=== PATIENT | female | born 1965 | race Caucasian/White ===

== ENCOUNTER 2019-06-29 08:17 | Outpatient (CLI) | payer OTHER, SELFPAY ==
--- NOTE | ~2019-06-29 | XR_ITS ---
EXAMINATION: XR ankle RT min 3V, XR foot RT min 3V DATE: 06/29/2019 09:08 INDICATION: Arthritis presenting with posterior ankle and calcaneal pain. TECHNIQUE: 1. Anteroposterior, mortise, additional oblique and lateral view of the right ankle were obtained. 2. Dorsoplantar, two oblique and lateral views of the right foot were obtained. COMPARISON: None. FINDINGS: Alignment of the right foot and ankle is normal. No fracture. Large peripherally corticated ossicle m easuring approximately 2.5 x 1.9 x 1.9 cm located at the posterior recess of the ankle joint. Differe ntial would include large loose osteochondral body, os trigonum or potentially an osteochondroma lorenzo ing from the superior margin of the calcaneus which also demonstrates an irregular cortical contour. The subtalar joint is not clearly profiled posteriorly raising possibility of a talocalcaneal coaliti on. Mild osteoarthritis at the ankle, calcaneocuboid, first metatarsophalangeal and a few tarsal meta tarsal and interphalangeal joints. Moderate Achilles and plantar calcaneal spurs. Soft tissues are un remarkable with no evident ankle joint effusion. IMPRESSION: 1. 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 2. Large ossification posterior to the ankle joint with differential including large degenerative loo se osteochondral body, os trigonum or potentially an osteochondroma. Could consider CT for more defin itive determination. Reviewed, dictated and finalized at location A. 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 2. Large ossification posterior to the ankle joint with differential including large degenerative loose osteochondral body, os trigonum or potentially an oste ochondroma. Could consider CT for more definitive determination.
--- NOTE | ~2019-06-29 | XR_ITS ---
EXAMINATION: XR hip LT min 2V INDICATION: Left hip pain TECHNIQUE: Two views of the left hip are obtained. COMPARISON: None available FINDINGS: Bone alignment is normal. There is mild osteoarthritis. No fracture is identified. There ar e phleboliths of the pelvis. IMPRESSION: 1. No acute osseous abnormality. Reviewed, dictated and finalized at location A. 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
[2019-06-29 09:11] LABS: Alanine Aminotransferase 42 U/L (14-59); Albumin Level 3.6 g/dL (3.4-5.0); Alkaline Phosphatase 43 U/L (46-116); Anion Gap 13.1 mmol/L (7-16); Aspartate Amino Transferase 27 U/L (15-37); Bilirubin,Total 0.7 mg/dL (0.00-1.00); Blood Urea Nitrogen 17 mg/dL (7-18); Calcium 8.9 mg/dL (8.5-10.1); Carbon Dioxide 28 mmol/L (21-32); Chloride 104 mmol/L (98-108); Estimated Glomerular Filt Rate > 60; Glucose 100 mg/dL (70-99); Osmolality Calculated 293 mOsm/kg (285-295); Potassium 4.1 mmol/L (3.5-5.1); Sodium 141 mmol/L (136-145); Total Protein 7.1 g/dL (6.4-8.2); Uric Acid 5.9 mg/dL (2.6-6.0)
[2019-06-29 09:19] LABS: CRP < 0.2 mg/dL (0.0-0.9)
== END 2019-06-29 08:18 | disposition home or self-care (01) ==
PROVIDERS: PCP Internal Medicine; Visit Provider Internal Medicine
DX: M25.50 Pain in unspecified joint (principal); I10 Essential (primary) hypertension
CPT/HCPCS: 36415; 73502; 73610; 73630; 80053; 84550; 86140

== ENCOUNTER 2020-03-08 09:10 | Outpatient (CLI) | payer OTHER, SELFPAY ==
[2020-03-08 10:04] LABS: Alanine Aminotransferase 46 U/L (14-59); Albumin Level 3.7 g/dL (3.4-5.0); Alkaline Phosphatase 49 U/L (46-116); Anion Gap 9 mmol/L (8-16); Aspartate Amino Transferase 23 U/L (15-37); Bilirubin,Total 0.6 mg/dL (0.00-1.00); Blood Urea Nitrogen 20 mg/dL (7-18); Carbon Dioxide 27 mmol/L (21-32); Chloride 104 mmol/L (98-108); Estimated Glomerular Filt Rate > 60; Glucose 98 mg/dL (70-99); Osmolality Calculated 292 mOsm/kg (285-295); Potassium 4.5 mmol/L (3.5-5.1); Sodium 140 mmol/L (136-145); Total Protein 6.8 g/dL (6.4-8.2)
== END 2020-03-08 09:11 | disposition home or self-care (01) ==
LOC: CHSLAB 09:12
PROVIDERS: PCP Internal Medicine; Visit Provider Internal Medicine
DX: I10 Essential (primary) hypertension (principal)
CPT/HCPCS: 36415; 80053

== ENCOUNTER 2020-09-11 08:51 | Outpatient (CLI) | payer OTHER, SELFPAY ==
[2020-09-11 09:06] LABS: Basophils Absolute Auto 0.04 K/mm3 (0.00-0.10); Basophils Percent Auto 0.7 % (0.0-1.0); Eosinophils Absolute Auto 0.28 K/mm3 (0.02-0.50); Eosinophils Percent Auto 5.1 % (1.0-6.0); Hematocrit 46.8 % (35.0-49.0); Hemoglobin 15.2 g/dL (12.0-15.0); Immature Granulocyte Absolute 0.01 K/mm3 (0.00-0.00); Immature Granulocyte Percent A 0.2 % (0.0-0.0); Lymphocytes Percent Auto 32.7 % (18.0-42.0); Mean Corpuscular HGB Conc 32.5 g/dL (32.0-36.0); Mean Corpuscular Hemoglobin 29.3 pg (27.0-31.0); Mean Corpuscular Volume 90.3 fL (78.0-102.0); Monocytes Absolute Auto 0.39 K/mm3 (0.10-0.90); Monocytes Percent Auto 7.1 % (2.0-11.0); Neutrophils Percent Auto 54.2 % (50.0-70.0); Platelet Count Result 231 K/mm3 (150-420); Red Blood Count 5.18 M/mm3 (4.20-5.40); Red Cell Distribution Width 13.4 % (11.6-14.4); White Blood Count 5.5 K/mm3 (4.8-10.8)
[2020-09-11 09:23] LABS: Add Urine Microscopic? NO; Appearance Urine Clear (Clear); Bilirubin Urine Negative (Negative); Blood Urine Negative (Negative); Color Urine Yellow (Yellow); Glucose Urine UA Negative (Negative); Ketones Urine Negative (Negative); Leukocyte Esterase Ur Negative LEU/UL (Negative); Nitrate Urine Negative (Negative); Protein Urine Negative (Negative); Urobilinogen Urine 0.2 mg/dL (0.2-1.0); pH Urine 6.5 (5.0-8.0)
[2020-09-11 10:34] LABS: Alanine Aminotransferase 53 U/L (14-59); Albumin Level 3.7 g/dL (3.4-5.0); Alkaline Phosphatase 55 U/L (46-116); Anion Gap 8 mmol/L (8-16); Aspartate Amino Transferase 17 U/L (15-37); Bilirubin,Total 0.5 mg/dL (0.00-1.00); Blood Urea Nitrogen 20 mg/dL (7-18); Calcium 9.5 mg/dL (8.5-10.1); Carbon Dioxide 31 mmol/L (21-32); Chloride 102 mmol/L (98-108); Cholesterol 178 mg/dL (0-200); Estimated Glomerular Filt Rate > 60; Glucose 96 mg/dL (70-99); HDL Direct 57 mg/dL (40-60); LDL Cholesterol Calculated 102 mg/dL (<130); Osmolality Calculated 294 mOsm/kg (285-295); Potassium 4.6 mmol/L (3.5-5.1); Sodium 141 mmol/L (136-145); Thyroid Stimulating Hormone 1.35 uIU/mL (0.36-3.74); Total Protein 7.2 g/dL (6.4-8.2); Triglycerides 95 mg/dL (0-150)
== END 2020-09-11 08:52 | disposition home or self-care (01) ==
LOC: CHSLAB 08:54
PROVIDERS: PCP Internal Medicine; Visit Provider Internal Medicine
DX: E66.9 Obesity, unspecified (principal); I10 Essential (primary) hypertension
CPT/HCPCS: 36415; 80053; 80061; 81003; 84443; 85025

== ENCOUNTER 2020-09-26 12:03 | Outpatient (CLI) | payer OTHER, SELFPAY ==
[2020-09-26 14:37] LABS: SARS-CoV-2 RNA PCR Positive (Negative)
== END 2020-09-26 12:04 | disposition home or self-care (01) ==
LOC: CHSLAB 12:05
PROVIDERS: PCP Internal Medicine; Visit Provider Internal Medicine
DX: U07.1 COVID-19 (principal)
CPT/HCPCS: C9803; U0003; U0005

== ENCOUNTER 2021-02-27 00:23 | Day surgery (SDC) | payer OTHER, SELFPAY ==
[2021-02-13 10:14] VITALS: BMI 51.6
[2021-02-27 07:18] VITALS: BP 160/98; PULSE 66; RESP 18; TEMP 36.5; O2SAT 100; BMI 54.6
--- NOTE | 2021-02-27 07:39 | WPDANESEPPF ---
Anes - Initial Pre Proc Eval Procedure: Operation Date: 02/27/21 08:30 Proposed Procedures p Screening Colonoscopy - Kieran Milligan MD Date/Time: 02/27/21 07:39 Surgeon: Kieran Milligan MD Pre Op Diagnosis: neoplasm screening Patient Data Age: 55 Gender: F Height: 1.63 m Weight: 144.3 kg Last Vital Signs Temp 36.5 C 02/27/21 07:18 Pulse 66 02/27/21 07:18 Resp 18 02/27/21 07:18 BP 160/98 H 02/27/21 07:18 Pulse Ox 100 02/27/21 07:18 Allergies Allergy/AdvReac Type Severity Reaction Status Date / Time No Known Allergies Allergy Verified 02/27/21 07:18 Home Medications Medication Instructions Recorded Confirmed Type glucosamine HCl 1,500 mg tablet 1,500 mg PO DAILY 07/16/19 02/13/21 History lisinopril 20 1 tablet PO DAILY 07/16/19 02/13/21 History mg-hydrochlorothiazide 12.5 mg tablet naproxen sodium 220 mg tablet 220 mg PO BID PRN 07/16/19 02/13/21 History vitamin B complex [B 1 tablet PO DAILY 02/13/21 02/13/21 History Complex-Vitamin B12] Patient hx anesthesia problems: none Family hx anesthesia problems: none Results Review: All pre-operative results and documents have been reviewed as part of the pre-operative evaluation. [facility] Past Medical History Medical History (Updated 02/27/21 @ 07:40 by Medardo Garcia MD) Arthritis of left subtalar joint Morbid obesity with BMI of 50.0-59.9, adult Surgical History Surgical History (Updated 07/16/19 @ 14:57 by Tanja Vo MA) History of carpal tunnel release Family History Family History Father Diabetes mellitus Hypertension Sibling Diabetes mellitus Hypertension Family history of malignant neoplasm Mother Family history of congestive heart failure Other Family history of allergic disorder Family history of hypothyroidism Family history of type 2 diabetes mellitus Social History Social History Smoking status: Never smoker Alcohol intake: current Alcohol use details: rare alcohol use Substance use: never Substance use type: does not use Living arrangements: with family Additional living arrangements comments: lives with spouse Spiritual care concerns: No Anes - Eval Final PreProcedure Day of Procedure 02/27/21 07:39 Patient weight: super morbidly obese Heart: regular rate and rhythm Lungs: clear to auscultation and normal air movement Airway: Mallampati scale class II Neurological: alert and oriented Last oral intake: >/= 8 hours ASA classification: III Emergent: no Anesthetic plan: proceed Anesthesia type and monitoring: general GIVS Results Review: All pre-operative results and documents have been reviewed as part of the pre-operative evaluation. Informed Consent: The patient's anesthetic plan and its attendant risks and benefits were discussed with the patient/family/POA. Questions were solicited and answers provided to the satisfaction of the patient/family/POA.
[2021-02-27] MEDS: LACTATED RINGERS 1,000 ML 150 ML IV CONT (07:50)
--- NOTE | 2021-02-27 08:24 | PM.HPGS ---
History of Present Illness History of Present Illness Consent: Risks, benefits, and alternatives have been discussed and questions answered. Patient agrees to proceed with procedure. Chief complaint: neoplasm screening Narrative: Avery Orellana is a 55 year old female here for first screening colonoscopy Review of Systems Constitutional: Constitutional: Denies headache(s) and Denies weakness Eyes: Eyes: Denies blurry vision ENT: Reports Normal hearing present, Denies headache(s) and Denies neck pain Cardiovascular: Cardiovascular: Denies chest pain and Denies dyspnea Respiratory: Respiratory: Denies dyspnea Gastrointestinal: Gastrointestinal: Reports no additional gastrointestinal complaints Genitourinary: Genitourinary: Denies dysuria Musculoskeletal: Musculoskeletal: Denies neck pain Integumentary/Breasts: Skin/Breast: Denies dry skin Neurologic: Reports Normal hearing present, Denies headache(s) and Denies weakness Psychiatric: Psychiatric: Denies anxiety Endocrine: Endocrine: Denies change in body appearance Hematologic/Lymphatic: Hematologic/Lymphatic: Denies easy bleeding Allergic/Immunologic: Allergic/Immunologic: Denies urticaria PMFSH Past Medical History Medical History (Updated 02/27/21 @ 08:24 by Kieran Milligan MD) Arthritis of left subtalar joint Colon cancer screening Morbid obesity with BMI of 50.0-59.9, adult Surgical History Surgical History (Updated 07/16/19 @ 14:57 by Tanja Vo MA) History of carpal tunnel release Family History Family History Father Diabetes mellitus Hypertension Sibling Diabetes mellitus Hypertension Family history of malignant neoplasm Mother Family history of congestive heart failure Other Family history of allergic disorder Family history of hypothyroidism Family history of type 2 diabetes mellitus Social History Social History Smoking status: Never smoker Alcohol intake: current Alcohol use details: rare alcohol use Substance use: never Substance use type: does not use Living arrangements: with family Additional living arrangements comments: lives with spouse Spiritual care concerns: No Meds Home Medications and Allergies Home Medications Medication Instructions Recorded Confirmed Type glucosamine HCl 1,500 mg tablet 1,500 mg PO DAILY 07/16/19 02/13/21 History lisinopril 20 1 tablet PO DAILY 07/16/19 02/13/21 History mg-hydrochlorothiazide 12.5 mg tablet naproxen sodium 220 mg tablet 220 mg PO BID PRN 07/16/19 02/13/21 History vitamin B complex [B 1 tablet PO DAILY 02/13/21 02/13/21 History Complex-Vitamin B12] Allergies Allergy/AdvReac Type Severity Reaction Status Date / Time No Known Allergies Allergy Verified 02/27/21 07:18 Vital Signs Vital Signs - 24 hr 02/27/21 07:18 Temperature 97.7 F Pulse Rate 66 Respiratory Rate 18 Blood Pressure 160/98 H Pulse Oximetry 100 Exam Const: General: comfortable and no acute distress HENMT: General nose exam: Normal nares present Eyes: General: appearance normal, both eyes and all related structures Neck: Neck: no JVD Resp: Auscultation: clear to auscultation bilaterally Cardio: Rate: regular rate Rhythm: regular rhythm GI: Inspection: non-distended GI Palp: Yes Soft to palpation Skin: General skin exam: normal color Neuro: General: gait normal Speech: normal speech Extrem: General: normal to inspection Psych: Mental Status: mental status grossly normal Assessment and Plan Assessment and plan (1) Colon cancer screening: Code(s): Z12.11 - Encounter for screening for malignant neoplasm of colon Status: Acute Assessment and Plan: colonoscopy
[2021-02-27 08:49] VITALS: BP 89/41; PULSE 62; RESP 24; O2SAT 100
[2021-02-27 08:59] VITALS: BP 114/54; PULSE 64; RESP 17; O2SAT 100
[2021-02-27 09:09] VITALS: BP 105/63; PULSE 62; RESP 21; O2SAT 100
== END 2021-02-27 09:23 | disposition home or self-care (01) ==
PROVIDERS: PCP Internal Medicine; Visit Provider Internal Medicine Gastroenterology
PROC: 0DJD8ZZ Inspection of Lower Intestinal Tract, Via Natural or Artificial Opening Endoscopic (ICD-10-PCS; CPT 45378; principal; 2021-02-27 08:30)
DX: Z12.11 Encounter for screening for malignant neoplasm of colon (principal); K57.30 Diverticulosis of large intestine without perforation or abscess without bleeding; K64.8 Other hemorrhoids; E66.01 Morbid (severe) obesity due to excess calories; Z68.43 Body mass index [BMI] 50.0-59.9, adult
CPT/HCPCS: 45378; J2704; J7120

== ENCOUNTER 2021-07-03 09:00 | Outpatient (CLI) | payer OTHER, SELFPAY ==
[2021-07-03 10:24] LABS: Alanine Aminotransferase 75 U/L (14-59); Albumin Level 3.7 g/dL (3.4-5.0); Alkaline Phosphatase 49 U/L (46-116); Anion Gap 6 mmol/L (8-16); Aspartate Amino Transferase 30 U/L (15-37); Bilirubin,Total 0.5 mg/dL (0.00-1.00); Blood Urea Nitrogen 18 mg/dL (7-18); Calcium 9.4 mg/dL (8.5-10.1); Carbon Dioxide 32 mmol/L (21-32); Chloride 104 mmol/L (98-108); Estimated Glomerular Filt Rate > 60; Glucose 94 mg/dL (70-99); Osmolality Calculated 295 mOsm/kg (285-295); Potassium 4.5 mmol/L (3.5-5.1); Sodium 142 mmol/L (136-145); Total Protein 6.9 g/dL (6.4-8.2)
== END 2021-07-03 09:01 | disposition home or self-care (01) ==
LOC: CHSLAB 09:04
PROVIDERS: PCP Internal Medicine; Visit Provider Internal Medicine
DX: I10 Essential (primary) hypertension (principal)
CPT/HCPCS: 36415; 80053

== ENCOUNTER 2022-01-03 07:36 | Outpatient (CLI) | payer OTHER, SELFPAY ==
[2022-01-03 07:52] LABS: Basophils Absolute Auto 0.05 K/mm3 (0.00-0.10); Basophils Percent Auto 0.8 % (0.0-1.0); Eosinophils Absolute Auto 0.27 K/mm3 (0.02-0.50); Eosinophils Percent Auto 4.1 % (1.0-6.0); Hematocrit 43.7 % (35.0-49.0); Hemoglobin 14.5 g/dL (12.0-15.0); Immature Granulocyte Absolute 0.02 K/mm3 (0.00-0.00); Immature Granulocyte Percent A 0.3 % (0.0-0.0); Lymphocytes Absolute Auto 1.99 K/mm3 (1.10-4.50); Lymphocytes Percent Auto 29.9 % (18.0-42.0); Mean Corpuscular HGB Conc 33.2 g/dL (32.0-36.0); Mean Corpuscular Hemoglobin 29.9 pg (27.0-31.0); Mean Corpuscular Volume 90.1 fL (78.0-102.0); Mean Platelet Volume 9.8 fl (9.2-11.8); Monocytes Absolute Auto 0.46 K/mm3 (0.10-0.90); Monocytes Percent Auto 6.9 % (2.0-11.0); Neutrophils Absolute Auto 3.9 K/mm3 (1.7-7.2); Platelet Count Result 232 K/mm3 (150-420); Red Blood Count 4.85 M/mm3 (4.20-5.40); Red Cell Distribution Width 14.5 % (11.6-14.4); White Blood Count 6.7 K/mm3 (4.8-10.8)
[2022-01-03 07:55] LABS: Add Urine Microscopic? NO; Appearance Urine Clear (Clear); Bilirubin Urine Negative (Negative); Blood Urine Negative (Negative); Color Urine Light Yellow (Yellow); Glucose Urine UA Negative (Negative); Ketones Urine Negative (Negative); Leukocyte Esterase Ur Negative (Negative); Nitrate Urine Negative (Negative); Protein Urine Negative (Negative); Specific Grav Ur 1.015 (1.010-1.020); Urobilinogen Urine 0.2 mg/dL (0.2-1.0)
[2022-01-03 08:16] LABS: Alanine Aminotransferase 38 U/L (14-59); Albumin Level 3.6 g/dL (3.4-5.0); Alkaline Phosphatase 59 U/L (46-116); Anion Gap 6 mmol/L (8-16); Aspartate Amino Transferase 20 U/L (15-37); Bilirubin,Total 0.7 mg/dL (0.00-1.00); Blood Urea Nitrogen 19 mg/dL (7-18); Calcium 9.3 mg/dL (8.5-10.1); Carbon Dioxide 29 mmol/L (21-32); Chloride 103 mmol/L (98-108); Cholesterol 162 mg/dL (0-200); Estimated Glomerular Filt Rate > 60; Glucose 106 mg/dL (70-99); HDL Direct 57 mg/dL (40-60); LDL Cholesterol Calculated 86 mg/dL (<130); Osmolality Calculated 288 mOsm/kg (285-295); Potassium 4.1 mmol/L (3.5-5.1); Sodium 138 mmol/L (136-145); Thyroid Stimulating Hormone 1.79 uIU/mL (0.36-3.74); Total Protein 7.2 g/dL (6.4-8.2); Triglycerides 93 mg/dL (0-150)
== END 2022-01-03 07:37 | disposition home or self-care (01) ==
LOC: CHSLAB 07:39
PROVIDERS: PCP Internal Medicine; Visit Provider Internal Medicine
DX: Z00.00 Encounter for general adult medical examination without abnormal findings (principal); I10 Essential (primary) hypertension; E78.5 Hyperlipidemia, unspecified
CPT/HCPCS: 36415; 80053; 80061; 81003; 84443; 85025

== ENCOUNTER 2023-02-26 13:33 | Outpatient (CLI) | payer OTHER, SELFPAY ==
--- NOTE | ~2023-02-26 | US_ITS ---
EXAMINATION: US pelvic complete w TV DATE: 02/26/2023 14:20 INDICATION: Abnormal pelvic exam, irregular menstrual cycle TECHNIQUE: Multiple transabdominal and endovaginal sonographic images of the pelvis were obtained. COMPARISON: None. FINDINGS: Uterus: 8.4 x 4.7 x 3.7 cm. Poor visualization. Endometrial complex not well visualized. 2.0 cm hypoe choic area in the parenchyma of the uterine body. Right Ovary: Not visualized. Left Ovary: Not visualized. There is no free fluid in the pelvis. IMPRESSION: Severely limited examination. Possible 2.0 cm uterine fibroid. Endometrial complex and bilateral ovar ies not visualized. Reviewed, dictated and finalized at location K. IMPRESSION: Severely limited examination. Possible 2.0 cm uterine fibroid. Endometrial comp jolly and bilateral ovaries not visualized.
--- NOTE | ~2023-02-26 | DEXA_ITS ---
Bone Density Report Name: GABRIELLA CRAIG Age: 57 Sex: Female Ethnicity: White Date of : 1965 Indication: postmenopausal; screening for osteoporosis; height loss; Referring Provider: Emily, Angelita Kamara Study: Bone densitometry was performed. Exam Date: February 26, 2023 Accession number: [id number] Bone Density: Region BMD T-score Z-score Classification AP Spine(L1, L2, L4) 1.172 1.3 2.6 Normal Femoral Neck (Left) 1.023 1.6 2.8 Normal Total Hip (Left) 1.150 1.7 2.6 Normal Femoral Neck (Right) 0.892 0.4 1.6 Normal Total Hip (Right) 1.185 2.0 2.9 Normal Femoral Neck Mean 0.958 1.0 2.2 Normal Total Hip Mean 1.168 1.9 2.7 Normal World Health Organization criteria for BMD impression classify patients as: Normal (T-score at or above -1.0), Osteopenia (T-score between -1.0 and -2.5), or Osteoporosis (T-score at or below -2.5). 10-year Fracture Risk: FRAX not reported because: All T-scores for Spine Total, Hip Total, Femoral Neck at or above -1.0 Clinical Information Provided by Patient: Has used the following medications: Vitamin D, Calcium Patient maximum height was 64 Menopause Age: 55 No regular weight bearing exercise Drinks caffeinated beverages Onset of menses at age 9 Number of children 3 Impression: The patient has normal bone mass. Discussion: BONE DENSITY IS ABOVE THE MINIMUM DESIRABLE LEVEL AT ALL SKELETAL SITES TESTED. This patient?s bone mineral density is above the minimum desirable level (T-score -1.0 or better) at all sites measured. The patient should follow a healthful lifestyle (good nutrition with adequate calcium and vitamin D, and appropriate weight-bearing exercise). Follow-Up: Consider repeating this study in 5 years or sooner if there is some new clinical indication. Reported by: Dr. Guanako Lynch on 02/26/2023 1:57:00 PM. Reviewed, dictated and finalized at location A.
== END 2023-02-26 13:34 | disposition home or self-care (01) ==
LOC: CHSIMG 13:34
PROVIDERS: PCP Internal Medicine; Visit Provider Nurse Practitioner Family
DX: Z78.0 Asymptomatic menopausal state (principal); N92.6 Irregular menstruation, unspecified
CPT/HCPCS: 76830; 76856; 77080

== ENCOUNTER 2023-03-19 10:58 | Outpatient (CLI) | payer OTHER, SELFPAY ==
[2023-03-19 12:03] LABS: Hematocrit 43.8 % (37.0-47.0); Hemoglobin 14.4 g/dL (12.0-15.0)
[2023-03-19 12:12] LABS: Anion Gap 10 mmol/L (8-16); Blood Urea Nitrogen 21 mg/dL (7-17); Calcium 9.8 mg/dL (8.4-10.2); Carbon Dioxide 29 mmol/L (22-30); Chloride 101 mmol/L (98-107); Estimated Glomerular Filt Rate > 60; Glucose 113 mg/dL (65-110); Sodium 140 mmol/L (137-145)
== END 2023-03-19 10:59 | disposition home or self-care (01) ==
LOC: ANHSURGERY 11:03
PROVIDERS: Anesthesiology; PCP Internal Medicine; Visit Provider Obstetrics & Gynecology
DX: Z01.818 Encounter for other preprocedural examination (principal); Z79.899 Other long term (current) drug therapy; N92.6 Irregular menstruation, unspecified
CPT/HCPCS: 36415; 80048; 85014; 85018

== ENCOUNTER 2023-03-21 00:53 | Day surgery (SDC) | payer OTHER, SELFPAY ==
[2023-03-14 14:43] VITALS: BMI 59.8
--- NOTE | 2023-03-14 14:46 | SUR.PREOP ---
Report to the Outpatient Waiting Room, entrance under the green pavilion located off [facility], at time 1200 on date 03/21/23. Planned Procedure Time: 1400. Time changes happen often and if your time is changed the preop area will call you the afternoon before. - You and your visitor will be asked to self-screen and do not enter if you have any COVID symptoms. - A mask is optional within the hospital at this time. Patients may have clear liquids (water, carbonated beverages, clear teas, apple juice) until 3 hours prior to surgery with a maximum of 20 ounces. - No food from midnight until time of surgery before 11am - Infants may have breast milk until 4 hours before surgery, infant formula 6 hours prior to surgery. - Children will be allowed to drink immediately following surgery. If applicable, please bring a bottle or sippy cup to assist with drinking. Juice, water, soda, and popsicles are readily available. For infants on formula, please bring formula the day of surgery. Pacifiers are allowed. Take the following medications with a SIP of water the morning of surgery: ___no morning meds DO NOT STOP ANY OF YOUR OTHER PRESCRIPTION MEDICATIONS PRIOR TO SURGERY ?EXCEPT THE FOLLOWING Medications to discontinue per physician _hold lisinopril the morning of surgery. hold supplements for 3days prior to surgery__ Date to take last dose Please no make-up, nail italian, hairspray, perfume, deodorant, or body powder the day of surgery. No jewelry (including any body piercings) or valuables the day of surgery, leave them at home. Please take a shower or bath the night before, or the morning of, surgery with an antibacterial soap. Wear comfortable, loose fitting clothing. Children are encouraged to wear pajamas. - Jewelry must be removed prior to entering the operating room. Rings and piercings that are not removed may be cut off. - The hospital will not accept responsibility for valuables. - Please leave all valuables, including medications, at home the day of surgery. If you are going home after surgery, a licensed dairy truck driver must drive you home. - NO public transportation without another adult if you receive anesthesia. - We recommend that an adult stay with you for 24 hours following discharge. - We also recommend that you do not drive, make important decision, drink alcoholic beverages, or take any drugs that were not prescribed by your health care provider for at least 24 hours after your discharge time. For Pediatric surgeries, we recommend two adults accompany the child home. Follow any additional instructions given to you from your surgeon. If you or anyone in your household have experienced Covid symptoms in the past week, please notify your surgeon or the nurse liaison at the phone number below for possible testing. Telephone instructions given to _patient__and asked if any additional questions and then verbalized understanding. Patient advised to call surgeon office or pre surgery nurse liaison [phone] if any additional questions.
--- NOTE | 2023-03-19 07:09 | PM.IMHP ---
H&P: HPI History of Present Illness Date/Time: 03/19/23 07:09 Chief Complaint: Vaginal bleeding Narrative: This is a 57-year-old female admitted for hysteroscopy dilatation curettage secondary to postmenopausal bleeding. She had bled for about 6 months underwent ultrasound and the appeared to be a fibroid was present. She has high blood pressure and is obese and is at high risk for endometrial and hyperplasia or cancer. She will undergo hysteroscopy dilatation curettage. Risks and benefits reviewed including but not exclusive of , aspiration pneumonia, bleeding, transfusion, perforation injury to bowel, bladder, ureters, or other internal organs with need for open laparotomy. She was given the handout entitled hysteroscopy as well as dilatation curettage from [facility] respectively. She had all questions answered to her satisfaction. She asked to proceed PMFSH Past Medical History Medical History Arthritis of left subtalar joint Colon cancer screening Morbid obesity with BMI of 50.0-59.9, adult Surgical History Surgical History History of carpal tunnel release Family History Family History Father Diabetes mellitus Hypertension Sibling Diabetes mellitus Hypertension Family history of malignant neoplasm Mother Family history of congestive heart failure Other Family history of allergic disorder Family history of hypothyroidism Family history of type 2 diabetes mellitus Social History Social History Smoking status: Never smoker Alcohol intake: current Alcohol use details: rare alcohol use Substance use: never Substance use type: does not use Living arrangements: with family Additional living arrangements comments: lives with spouse Spiritual care concerns: No Meds Home Medications and Allergies Home Medications Medication Instructions Recorded Confirmed Type glucosamine HCl 1,500 mg tablet 1,500 mg PO DAILY 07/16/19 02/13/21 History lisinopril 20 1 tablet PO DAILY 07/16/19 02/13/21 History mg-hydrochlorothiazide 12.5 mg tablet naproxen sodium 220 mg tablet 220 mg PO BID PRN Pain 07/16/19 02/13/21 History (Flanax (naproxen)) vitamin B complex (B 1 tablet PO DAILY 02/13/21 02/13/21 History Complex-Vitamin B12 tablet) lisinopril 20 mg tablet 20 mg PO BID 03/14/23 03/14/23 History loratadine 10 mg tablet (Claritin) 10 mg PO DAILY 03/14/23 03/14/23 History minerals 1 tablet PO DAILY 03/14/23 03/14/23 History Allergies Allergy/AdvReac Type Severity Reaction Status Date / Time hydrocodone [From Vicodin] AdvReac Mild Vomiting Verified 03/17/23 08:55 Exam Const: General: cooperative and comfortable Nutritional Appearance: obese Orientation/consciousness: oriented to person, oriented to place and oriented to time Resp: Effort & Inspection: normal respiratory effort Cardio: Rate: regular rate Rhythm: regular rhythm Heart sounds: S1 normal heart sound present and S2 normal heart sound present GI: Inspection: normal to inspection and obesity : External Female Exam: normal external appearance Speculum Exam - Vagina: normal appearance of the vagina and swelling Speculum Exam - Cervix: normal appearance of the cervix Bimanual exam- vagina & uterus: enlarged Bimanual Exam- Adnexa, other: normal adnexae Assessment and Plan Assessment and plan (1) Excessive bleeding: Code(s): R58 - Hemorrhage, not elsewhere classified Status: Acute (2) Morbid obesity with BMI of 50.0-59.9, adult: Code(s): E66.01 - Morbid (severe) obesity due to excess calories; Z68.43 - Body mass index [BMI] 50.0-59.9, adult Status: Acute Plan Hysteroscopy/dilatation curettage
--- NOTE | 2023-03-21 06:35 | WPDHPUPDATE1 ---
History and Physical Update Update Date/Time: 03/21/23 06:35 History and Physical has been reviewed, including an updated exam of the patient. There are NO changes in the patient's condition. Risks, benefits, and alternatives have been discussed and questions answered. Patient agrees to proceed with procedure.
[2023-03-21 09:41] VITALS: BP 151/73; PULSE 80; RESP 18; TEMP 36.2; O2SAT 99
--- NOTE | 2023-03-21 09:55 | WPDANESEPPF ---
Anes - Initial Pre Proc Eval Procedure: Operation Date: 03/21/23 11:30 Proposed Procedures p Hysteroscopy Dilation and Curettage - Saw Joseph MD Date/Time: 03/21/23 09:55 Surgeon: Saw Joseph MD Pre Op Diagnosis: irregular bleeding , pelvic pain Patient Data Age: 57 Gender: F Height: 1.61 m Weight: 155.58 kg Allergies Allergy/AdvReac Type Severity Reaction Status Date / Time hydrocodone [From Vicodin] AdvReac Mild Vomiting Verified 03/17/23 08:55 Home Medications Medication Instructions Recorded Confirmed Type glucosamine HCl 1,500 mg tablet 1,500 mg PO DAILY 07/16/19 02/13/21 History lisinopril 20 1 tablet PO DAILY 07/16/19 02/13/21 History mg-hydrochlorothiazide 12.5 mg tablet naproxen sodium 220 mg tablet 220 mg PO BID PRN Pain 07/16/19 02/13/21 History (Flanax (naproxen)) vitamin B complex (B 1 tablet PO DAILY 02/13/21 02/13/21 History Complex-Vitamin B12 tablet) lisinopril 20 mg tablet 20 mg PO BID 03/14/23 03/14/23 History loratadine 10 mg tablet (Claritin) 10 mg PO DAILY 03/14/23 03/14/23 History minerals 1 tablet PO DAILY 03/14/23 03/14/23 History hydrocodone 5 mg-acetaminophen 325 1 tablet PO Q4H PRN pain #20 tabs 03/21/23 Rx mg tablet Patient hx anesthesia problems: none Family hx anesthesia problems: none Results Review: All pre-operative results and documents have been reviewed as part of the pre-operative evaluation. [facility] Past Medical History Medical History Arthritis of left subtalar joint Colon cancer screening Morbid obesity with BMI of 50.0-59.9, adult Surgical History Surgical History History of carpal tunnel release Family History Family History Father Diabetes mellitus Hypertension Sibling Diabetes mellitus Hypertension Family history of malignant neoplasm Mother Family history of congestive heart failure Other Family history of allergic disorder Family history of hypothyroidism Family history of type 2 diabetes mellitus Social History Social History Smoking status: Never smoker Alcohol intake: current Alcohol use details: rare alcohol use Substance use: never Substance use type: does not use Living arrangements: with family Additional living arrangements comments: lives with spouse Spiritual care concerns: No Anes - Eval Final PreProcedure Day of Procedure 03/21/23 09:55 Patient weight: super morbidly obese Heart: regular rate and rhythm Lungs: clear to auscultation Airway: Mallampati scale class II Neurological: alert and oriented Last oral intake: >/= 8 hours ASA classification: III Emergent: no Anesthetic plan: proceed Anesthesia type and monitoring: general GIVS and standard monitoring Results Review: All pre-operative results and documents have been reviewed as part of the pre-operative evaluation. Informed Consent: The patient's anesthetic plan and its attendant risks and benefits were discussed with the patient/family/POA. Questions were solicited and answers provided to the satisfaction of the patient/family/POA.
[2023-03-21] MEDS: LACTATED RINGERS 1,000 ML 30 ML IV CONT (10:09)
[2023-03-21] MEDS: ACETAMINOPHEN 500 MG TABLET 1000 MG PO (10:09)
[2023-03-21] MEDS: LIDOCAINE HCL 1% LOCAL INJ 10 ML VIAL INFILTRATE (11:26)
[2023-03-21] MEDS: KETOROLAC 30 MG/ML VIAL (*BKC) IV PUSH (11:27)
--- NOTE | 2023-03-21 11:53 | W.PM.PROC2 ---
Procedure Note - Detailed Date of Procedure 03/21/23 Pre-op Diagnosis irregular bleeding , pelvic pain Post-op Diagnosis Same Procedure Performed Exam under anesthesia/aborted hysteroscopy dilatation curettage Surgeon Saw Joseph MD Anesthesia MAC Indications 57-year-old morbidly obese female with postmenopausal bleeding Findings Patient's cervix was attempted to be reached times with with various instruments was unable to be reached safely pass the hysteroscope. Description of Procedure Patient is prepped draped sterile fashion placed in dorsal position excellent IV sedation multiple attempts were placed to place retractors speculum to visualized cervix and Estimated Blood Loss 5 Drains No Packing No Pathology None sent Complications No immediate complications Condition Stable Disposition PACU
[2023-03-21 11:54] VITALS: BP 104/60; PULSE 79; RESP 16; O2SAT 99
[2023-03-21 12:20] VITALS: BP 118/74; PULSE 72; RESP 16; O2SAT 100
[2023-03-21 12:50] VITALS: BP 118/75; PULSE 61; RESP 16
== END 2023-03-21 13:06 | disposition home or self-care (01) ==
PROVIDERS: PCP Internal Medicine; Visit Provider Obstetrics & Gynecology
PROC: 0U5B8ZZ Destruction of Endometrium, Via Natural or Artificial Opening Endoscopic (ICD-10-PCS; CPT 58563; principal; 2023-03-21 11:30)
DX: N95.0 Postmenopausal bleeding (principal); R10.2 Pelvic and perineal pain; Z53.8 Procedure and treatment not carried out for other reasons; E66.01 Morbid (severe) obesity due to excess calories; Z68.44 Body mass index [BMI] 60.0-69.9, adult
CPT/HCPCS: 58558; 36415; 80048; 85014; 85018; A9270; J1100; J1885; J2250; J2405; J2704; J3010; J7120

== ENCOUNTER 2023-04-09 10:43 | Outpatient (CLI) | payer OTHER, SELFPAY ==
--- NOTE | ~2023-04-09 | MM_ITS ---
EXAMINATION: MM screening didier BI w shannan HISTORY: Screening mammogram, family history of breast cancer in her sister. TECHNIQUE: Craniocaudal and mediolateral oblique 3-D tomosynthesis images were obtained and synthetic 2-D images were generated. CAD analysis was submitted and interpreted. COMPARISON: 06/04/2016, 03/25/2016 BREAST PARENCHYMAL COMPOSITION: The breasts are almost entirely fatty. FINDINGS: No suspicious mass, calcification, or architectural distortion are identified in either eusebio ast to suggest malignancy. There has been no suspicious interval change. IMPRESSION: 1. No mammographic evidence of malignancy. 2. Recommend routine screening mammography in one year. BI-RADS Category 1: Negative Reviewed, dictated and finalized at location A. 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
== END 2023-04-09 10:44 | disposition home or self-care (01) ==
LOC: CHSIMG 10:45
PROVIDERS: PCP Internal Medicine; Visit Provider Nurse Practitioner Family
DX: Z12.31 Encounter for screening mammogram for malignant neoplasm of breast (principal)
CPT/HCPCS: 77063; 77067

== ENCOUNTER 2024-12-08 08:38 | Outpatient (CLI) | payer OTHER, SELFPAY ==
--- OUTSIDE RECORDS SUMMARY | 2024-12-08 08:49 | XMS_ITS | Clinical Summary ---
Author Organization [facility] [employer] Address [address] [place] [address] Care Team Providers Care Pilot Manager Name Role Phone No, Physician Primary Care Provider [phone] Allergies Active Allergy Reactions Criticality Noted Date Comments Hydrocodone-Acetaminophen Vomiting Low 04/04/2023 Medications lisinopril-hydro CHLOROthiazide (ZESTORETIC) 20-12.5 mg per tablet Take 1 tablet by mouth 2 (two) times a day 01/28/2023 Active Active Problems Problem Noted Date Diagnosed Date Family history of uterine cancer 05/12/2023 Hypertension 04/11/2023 Surgical History Surgery Date Site/Laterality Comments SECTION Medical History Medical History Date Comments Hypertension 04/11/2023 Family History Medical History Relation Name Comments COPD Brother Colon cancer Father Diabetes Father Hypertension Father Lung cancer Maternal Grandmother Hypotension Mother Osteoporosis Mother Uterine cancer Paternal Grandmother Relation Name Status Comments Brother Father Maternal Grandmother Mother Paternal Grandmother Social History Tobacco Use Types Packs/Day Years Used Date Smoking Tobacco: Never Assessed AUDIT-C Answer Date Recorded Frequency of Alcohol Consumption Not on file 04/04/2023 Q2: How many drinks containi ng alcohol do you have on a typical day when you are drinking? Patient does not drink Frequency of Binge Drinking Not on file 05/2022 Comments No Sex and Gender Information Value Date Recorded Sex Assigned at Not on file Legal Sex Female 12:03 AM EKG/ECG TECHNICIAN Gender Identity Female 04/01/2023 8:19 PM EKG/ECG TECHNICIAN Sexual Orientation Straight 04/01/2023 8: 19 PM EKG/ECG TECHNICIAN Obstetrics History Para Term AB IAB SAB Ectopic Multiple Livin g Live Births 4 3 3 1 1 2 2 Date Outcome GA Total Labor Labor/2nd/3rd Weight Sex Type Anes PTL Debbie A1 A5 Name Clin 1985 Term F CS-Un spec Living 1990 Term M CS-Un spec 1994 Term F CS-Un spec Living Last Filed Vital Signs Vital Sign Reading Time Taken Comments Blood Pressure 106/62 05/12/2023 10:16 AM EKG/ECG TECHNICIAN Pulse 74 05/12/2023 10:16 AM EKG/ECG TECHNICIAN Temperature - - Respiratory Rate - - Oxygen Saturation - - Inhaled Oxygen Concentration - - Weight 159.9 kg (352 lb 9.6 oz) 024 10:16 AM EKG/ECG TECHNICIAN Height 161.3 cm (5' 3.5) 05/12/2023 10 :16 AM EKG/ECG TECHNICIAN Body Mass Index 61.48 05/12/2023 10:16 AM EKG/ECG TECHNICIAN Plan of Treatment Health Maintenance Due Date Last Done Comments Breast Cancer Screening-Mammogram 1964 Cervical Cancer Screening 1964 Colon Cancer Screening-Colonoscopy 1964 Depression Screening 1964 Hepatitis C Screening 1964 Hepatitis B Screening 1982 Regular Well Visit/Exam 18-64 1982 Covid-19 Vaccine ( season) 2024 02/14/2023, 02/07/2022, 04/20/2021, Additional history exists Influenza Vaccine (#1) 2025 3, 02/07/2022, 03/12/2021, Additional history exists DTaP/Tdap/Td Vaccine (2 - Td or Tdap) 11/18/2026 11/18/2016 Zoster Vaccine Completed 12/11/2022, 07/05/2022 Pneumococcal vaccine <65 Aged Out No longer eligible based on patient's age to complete this topic Insurance [facility] Care Teams Pilot Manager Relationship Specialty Start Date End Date No, Physician PCP - General 03/25/23
--- OUTSIDE RECORDS SUMMARY | 2024-12-08 08:49 | XMS_ITS | Continuity of Care Document ---
Author Organization [facility] Address [address] [place] [address] [address] [place] [address] Phone Care Team Providers Care Distribution District Supervisor Name Role Phone Gill OD, Yao Unavailable Unavailable Procedures Procedure Date Eye Exam, New Patient Refraction Advance Directives Directive Yes / No Effective Date File Name No Information Encounters Encounter Description Practice Location Reason(s) For Visit Diagnoses Date Provider Providers Copied on Encounter [facility], [address] [place] [address] [address], [place], [place], [id number], [place] tel:[phone] [facility] No Information Jul- 6-200 9 Gill OD Yao. [address] , [address], [place], [address], [place]. tel:[phone] Family History Family Member Type Diagnosis Age At Onset No Information Payers Payer name Insurance type Covered republican ID Authoriza tion(s) No Information Social History Type Description Quantity Date Captured Comments Sex Female Smoking Status No Information Chief Complaint And Reason For Visit No Information Reason For Referral Reason For Referral No Information History Of Present Illness Encounter Date Complaint History Of Prese nt Illness No Information Functional Status Date Functional Assessmen t No Information Instructions Date Instruction Additional Infor mation No Information Assessments Type Assessment Date No Information Patient Care Teams Name Effective Dates (start - stop) Status Members No Information
[2024-12-08 08:55] LABS: Hematocrit 43.0 % (35.0-49.0); Hemoglobin 14.3 g/dL (12.0-15.0); Mean Corpuscular HGB Conc 33.3 g/dL (32-36); Mean Corpuscular Hemoglobin 29.8 pg (27.0-31.0); Mean Corpuscular Volume 89.6 fL (78.0-102.0); Platelet Count Result 208 K/mm3 (150-420); Red Blood Count 4.80 M/mm3 (4.20-5.40); White Blood Count 4.9 K/mm3 (4.8-10.8)
[2024-12-08 08:57] LABS: Add Urine Microscopic? NO; Appearance Urine Clear (Clear); Glucose Urine UA Negative (Negative); Leukocyte Esterase Ur Negative LEU/UL (Negative); Nitrate Urine Negative (Negative); Specific Grav Ur 1.020 (1.010-1.020)
[2024-12-08 09:48] LABS: Alanine Aminotransferase 65 U/L (6-35); Albumin Level 4.1 g/dL (3.5-5.1); Alkaline Phosphatase 60 U/L (38-126); Anion Gap 5 mmol/L (4-12); Aspartate Amino Transferase 51 U/L (14-36); Bilirubin,Total 0.7 mg/dL (0.2-1.3); Blood Urea Nitrogen 19 mg/dL (7-17); Calcium 10.4 mg/dL (8.4-10.2); Carbon Dioxide 29 mmol/L (22-30); Chloride 106 mmol/L (98-107); Cholesterol 182 mg/dL (0-200); Estimated Glomerular Filt Rate > 60; Glucose 114 mg/dL (65-110); HDL Direct 54 mg/dL; Osmolality Calculated 293 mOsm/kg (285-295); Potassium 4.6 mmol/L (3.4-5.0); Sodium 140 mmol/L (137-145); Total Protein 6.6 g/dL (6.3-8.2); Triglycerides 153 mg/dL (<150)
[2024-12-08 10:16] LABS: Thyroid Stimulating Hormone 1.360 uIU/mL (0.465-4.680)
[2024-12-08 14:01] LABS: Hemoglobin A1C 5.5 % (<5.7)
== END 2024-12-08 08:39 | disposition home or self-care (01) ==
LOC: CHSLAB 08:40
PROVIDERS: PCP Internal Medicine; Visit Provider Internal Medicine
DX: Z00.00 Encounter for general adult medical examination without abnormal findings (principal); I10 Essential (primary) hypertension; E78.5 Hyperlipidemia, unspecified; R73.01 Impaired fasting glucose
CPT/HCPCS: 36415; 80053; 80061; 81003; 83036; 84443; 85027

== ENCOUNTER 2024-12-10 09:08 | Outpatient (CLI) | payer OTHER, SELFPAY ==
[2024-12-10 10:06] LABS: Calcium 10.6 mg/dL (8.4-10.2)
[2024-12-11 18:08] LABS: Calcium, Ionized 5.5 mg/dL (4.5-5.6)
== END 2024-12-10 09:09 | disposition home or self-care (01) ==
LOC: CHSLAB 09:11
PROVIDERS: PCP Internal Medicine; Visit Provider Internal Medicine
DX: E83.52 Hypercalcemia (principal)
CPT/HCPCS: 36415; 82310; 82330; 83970; 84100